=== PATIENT | male | born 1970 | race Caucasian/White ===

== ENCOUNTER 2022-03-01 07:25 | Emergency (ER) | payer BC ==
[~2022-03-01] VITALS: Ht 175.3 cm; Wt 81.6 kg
[2022-03-01 07:47] LABS: Urine WBC None Seen /hpf (0 - 3)
[2022-03-01 07:53] LABS: Urine Bacteria NONE SEEN /hpf (None Seen); Urine Blood Negative /uL (Negative); Urine Specific Gravity 1.001 (1.001-1.035)
[2022-03-01 08:20] LABS: Albumin 3.7 g/dL (3.4-5.0); BUN/Creatinine Ratio 5.2; Calcium 8.9 mg/dL (8.5-10.1); Potassium 3.3 mmol/L (3.5-5.1)
[2022-03-01 08:23] LABS: Bilirubin, Total 0.6 mg/dL (0.2-1.0); Total Protein 7.7 g/dL (6.4-8.2)
[2022-03-01 08:25] LABS: Basophils # (auto) 0.1 10 ^3/uL (0-0.2); Basophils % (auto) 0.7 % (0.0-2.0); Eosinophils # (auto) 0 10 ^3/uL (0-0.8); Eosinophils % (auto) 0.3 % (0.0-7.0); Hemoglobin 14.7 g/dL (13.5-17.5); Lymphocytes # (auto) 1.8 10 ^3/uL (0.4-5.4); Lymphocytes % (auto) 16.9 % (10.0-50.0); Mean Corpuscular Hemoglobin 31.9 pg (28.0-32.0); Mean Corpuscular Hgb Conc. 34.2 g/dL (32.0-36.0); Mean Corpuscular Volume 93.3 fL (80.0-100.0); Monocytes # (auto) 1.3 10 ^3/uL (0-1.3); Monocytes % (auto) 12.4 % (0.0-12.0); Neutrophils # (auto) 7.5 10 ^3/uL (1.6-8.6); Neutrophils % (auto) 69.7 % (37.0-80.0); Red Blood Cells 4.61 10^6/uL (4.5-5.90); Red Cell Distribution Width 13.7 % (11.8-14.3); White Blood Cell 10.8 10^3/uL (4.4-10.8)
[2022-03-01] MEDS ORDERED: IOHEXOL 350 MG/ML 100ML IJ ONE (08:27)
[2022-03-01] MEDS ORDERED: CIPROFLOXACIN 400MG/200ML 200 ML IV ONE (10:00)
[2022-03-01] MEDS ORDERED: metroNIDAZOLE 500MG/100ML 100 ML IV ONE (10:00)
[2022-03-01] MEDS ORDERED: LACTATED RINGER'S 1,000 ML IV ONE (10:00)
[2022-03-01] MEDS ORDERED: SODIUM CHLORIDE 0.9% 1,000 ML IV ONE (10:45)
[2022-03-01] MEDS ORDERED: HYDROcodone-ACET 5/325MG TAB PO PRN (11:00)
[2022-03-01] MEDS ORDERED: ONDANSETRON HCL 4 MG/2 ML VIAL IV ONE ×2 (11:15→17:00)
[2022-03-01] MEDS ORDERED: MORPHINE SULFATE 4 MG/ML SYR/VIAL IV ONE ×2 (11:15→17:00)
[2022-03-01] MEDS ORDERED: POTASSIUM CHL 20 Meq TABLET PO ONE (18:15)
[2022-03-01 20:29] VITALS: BP 138/93
[2022-03-02] MEDS ORDERED: ENOXAPARIN SOD 40 MG/0.4 ML SYRINGE SC SCH (10:00)
== END 2022-03-01 21:40 | disposition left against medical advice (07) ==
LOC: ER 07:25
DX: K37 Unspecified appendicitis (principal); Z20.822 Contact with and (suspected) exposure to COVID-19; Z53.29 Procedure and treatment not carried out because of patient's decision for other reasons
CPT/HCPCS: 36415; 74177; 80053; 81001; 85025; 86850; 86900; 86901; 87426; 93005; 96365; 96367; 96375; 96376; 99285; J0744; J2270; J2405; J3490; J7030; Q9967

== ENCOUNTER 2024-01-15 09:58 | Emergency (ER) | payer BC ==
[~2024-01-15] VITALS: Ht 175.3 cm; Wt 84.1 kg
[2024-01-15 10:04] VITALS: TEMP 99.8
[2024-01-15 10:07] VITALS: BP 155/93; PULSE 85; RESP 16; O2SAT 100
[2024-01-15] MEDS: AMPICILLIN & SULBACTAM SODIUM 3 GM in SODIUM CHL 0.9% 100 ML IV ONE (10:45)
[2024-01-15] MEDS: metroNIDAZOLE 500MG/100ML 100 ML IV ONE (11:07)
[2024-01-15] MEDS: KETOROLAC TROMETH 30 MG/ML 1ML VIAL IV ONE (11:07)
[2024-01-15 11:12] LABS: Basophils # (auto) 0 10 ^3/uL (0-0.2); Basophils % (auto) 0.6 % (0.0-2.0); Eosinophils # (auto) 0 10 ^3/uL (0-0.8); Eosinophils % (auto) 0.2 % (0.0-7.0); Hematocrit 43.9 % (41.0-53.0); Hemoglobin 15.2 g/dL (13.5-17.5); Lymphocytes # (auto) 1.8 10 ^3/uL (0.4-5.4); Lymphocytes % (auto) 22.6 % (10.0-50.0); Mean Corpuscular Hemoglobin 33.2 pg (28.0-32.0); Mean Corpuscular Hgb Conc. 34.6 g/dL (32.0-36.0); Mean Corpuscular Volume 95.7 fL (80.0-100.0); Monocytes # (auto) 0.7 10 ^3/uL (0-1.3); Monocytes % (auto) 8.4 % (0.0-12.0); Neutrophils # (auto) 5.4 10 ^3/uL (1.6-8.6); Neutrophils % (auto) 68.2 % (37.0-80.0); Nucleated Red Blood Cells % 0.1 %; Red Blood Cells 4.59 10^6/uL (4.5-5.90); Red Cell Distribution Width 13.8 % (11.8-14.3); White Blood Cell 7.9 10^3/uL (4.4-10.8)
[2024-01-15 11:16] LABS: Chloride 105 mmol/L (98-107); Potassium 3.4 mmol/L (3.5-5.1); Sodium 139 mmol/L (136-145)
[2024-01-15 11:17] LABS: Anion Gap 9 (5-15); Calcium 9.6 mg/dL (8.7-10.4); Carbon Dioxide 25 mmol/L (20-30)
[2024-01-15 11:22] LABS: Glucose 191 mg/dL (74-106)
[2024-01-15 11:27] LABS: BUN/Creatinine Ratio 6.4 (10.0-20.0); Blood Urea Nitrogen < 5 mg/dL (9-23)
[2024-01-15] MEDS: IOHEXOL 300 MG/ML 100ML BOTTLE IJ ONE (12:29)
[2024-01-15] MEDS ORDERED: BACDST PO (13:18)
[2024-01-15] MEDS ORDERED: CEPH500C PO (13:18)
== END 2024-01-15 13:31 | disposition home or self-care (01) ==
LOC: ER 09:58
DX: L03.012 Cellulitis of left finger (principal); Z79.899 Other long term (current) drug therapy
CPT/HCPCS: 36415; 73201; 80048; 85025; 87040; 96365; 96368; 96375; 99285; J1885; J3490; Q9967